=== PATIENT | female | born 1975 | race Caucasian/White ===

== ENCOUNTER 2016-07-18 10:58 | Day surgery (SDC) | payer MEDICAID ==
[~2016-07-18] VITALS: Ht 170.2 cm; Wt 81.6 kg
--- NOTE | ~2016-07-18 | DS ---
PATIENT'S NAME: EMANUEL ASH [facility] AGE: 41 Y [address] ROOM: [place] [id number] [place] [facility] [place]: 07/18/2016 Discharge Summary DISCHARGE DATE: 07/20/2016 FAMILY PHYSICIAN: Alex Rizzo MD ATTENDING PHYSICIAN: George Maza ADMITTING DIAGNOSIS: Stress urinary incontinence. DISCHARGE DIAGNOSES: 1. Stress urinary incontinence. 2. Postoperative bleeding. PROCEDURE PERFORMED: Mid-urethral suspension. HOSPITAL COURSE: On the day admission, the patient underwent a mid-urethral suspension. On the first postoperative day, the patient was comfortable. Her hemoglobin was 11.1 and hematocrit was 34.8, which was now stable. Because of her decreased initial hemoglobin and hematocrit, it was decided to leave her Barker catheter in place and packing. She was allowed to get up in the chair. On the second postoperative day, the patient's hemoglobin remained stable at 10.5 and hematocrit was 33.3. Her Barker catheter was removed in the morning along with the packing. She is able to void and her postvoid residual was 25 mL. The patient was discharged to home with followup scheduled with myself. MD IRVING SANDY/lilly /[id number] d: 08/14/16 0056 t: 08/25/16 1020, DISCHARGE SUMMARY
--- NOTE | ~2016-07-18 | OR ---
PATIENT'S NAME: EMANUEL ASH [facility] AGE: 41 Y [address] ROOM: [place] [address] LOCATION: [facility] – [place] ADMIT DATE: 07/18/2016 OR/Procedure Report DISCHARGE DATE: FAMILY PHYSICIAN: Alex Rizzo MD ATTENDING PHYSICIAN: George Maza SURGEON: George Maza MD STEEL HEATER: DATE OF PROCEDURE: 07/18/2016 PREOPERATIVE DIAGNOSIS: Stress urinary incontinence. POSTOPERATIVE DIAGNOSIS: Stress urinary incontinence. PROCEDURES PERFORMED: Midurethral suspension. ANESTHESIA: General. COMPLICATIONS: None. INDICATION FOR PROCEDURE: The patient is a 41-year-old female with stress urinary incontinence, requests elective repair. DETAILS OF PROCEDURE: After informed consent obtained, the patient was taken to the operating room. A general anesthetic was applied. She was placed in the dorsal lithotomy position. The groin area and lower abdomen were prepped and draped in normal sterile fashion. Two small skin incisions were made over the pubic bone. A Barker catheter was then placed and the bladder emptied. Vasopressin was then injected into the anterior vaginal wall. A T-incision was then made in the anterior vaginal wall using scalpel blade and Metzenbaum scissors. I then carefully dissected space into the endopelvic fascia using blunt and sharp dissection bilaterally. Next, TVT needles were passed through the abdominal incision out the anterior vaginal wall. This was first done on the right side. On the patient's left, it had little more difficulty and noted that the urine was slightly blood tinged. I removed the needle and cystoscopy was performed. This revealed the right-sided needle was in good position and a small puncture wound was noted in the bladder. I then repositioned the needle and performed cystoscopy, this showed the needle not within the bladder and well away from the bladder wall. Next, a tape was attached to the end of each needle and pulled through. Heavy curved scissors were used as a spacing device. The sheath was cut and pulled through locking the tape in position. Excess was excised at the abdominal wall. The patient was noted to have some bleeding on her left side and FloSeal was injected, which controlled the bleeding very well. The incision was then closed with a running interlocking 2-0 Vicryl suture. The vagina was then packed with gauze and vaginal tape. The abdominal incision was Steri-Stripped. The patient PATIENT'S NAME: EMANUEL ASH [facility] AGE: 41 Y [address] ROOM: [place] [address] LOCATION: [facility] – [place] ADMIT DATE: 07/18/2016 OR/Procedure Report DISCHARGE DATE: FAMILY PHYSICIAN: Alex Rizzo MD ATTENDING PHYSICIAN: George Maza tolerated the procedure well and transferred to recovery room in good condition. MD IRVING SANDY/modl /[id number] CC: Alex Rizzo MD d: 07/18/16 2051 t: 07/29/16 1454, OPERATIVE SUMMARY
[~2016-07-18 10:58] MED LIST: ADVIL200 MG PO; CRANBERRY400 MG PO; FLORASTOR250 MG PO; HYDROCODON-ACE1 EAC4 PO; LEXAPRO10 MG PO; PERCOCET 5-3251 EACH PO; PRENATAL 1+1)(P1 TAB PO; PROBIOTIC1 EAC1 PO; SINGULAIR10 MG PO; SUDAFED 12 HOU120 MG PO; TYLENOL EXTRA500 MG PO; VITAMIN D2000 UNI1 PO; XANAX0.5 MG PO; ZOFRAN4 MG PO
[2016-07-18 12:00] LABS: BASOPHIL % 0.7 %; EOSINOPHIL # 0.1 K/uL (0.0-0.5); EOSINOPHIL % 1.4 %; HEMATOCRIT 39.7 % (33.0-46.0); HEMOGLOBIN 13.1 g/dL (10.0-15.0); IMMATURE GRANULOCYTE % 0.2 %; LYMPHOCYTE # 1.6 K/uL (0.8-4.0); LYMPHOCYTE % 27.6 %; MCH 31.3 pg (27.0-34.0); MCV 94.7 fl (83.0-98.0); MONOCYTE # 0.4 K/uL (0.0-1.0); MONOCYTE % 7.7 %; MPV 10.9 fl (9.4-12.4); NEUTROPHIL # (ANC) 3.5 K/uL (1.8-7.8); NEUTROPHIL % 62.4 %; NRBC % 0 /100WBC (0-0.00); PLATELET COUNT 158 K/uL (150-450); RBC 4.19 M/uL (3.50-5.50); RDW-CV 12.8 % (11.9-14.6); WBC 5.7 K/uL (4.0-11.0)
[2016-07-18 12:15] LABS: ALBUMIN 3.5 gm/dL (3.5-5.0); ALK PHOS 53 IU/L (33-138); ALT 40 IU/L (12-78); AST 25 IU/L (10-40); BLOOD UREA NITROGEN 10 mg/dL (6-24); CALCIUM 8.7 mg/dL (8.5-10.5); CHLORIDE 107 mMol/L (96-110); CO2 30 mMol/L (22-32); CREATININE 0.7 mg/dL (0.5-1.1); ESTIMATED GFR (MDRD EQUATION) > 60; SODIUM 141 mMol/L (135-145); TOTAL BILIRUBIN 0.3 mg/dL (0.0-1.5)
[2016-07-19 04:59] LABS: BASOPHIL % 0.2 %; EOSINOPHIL % 0.1 %; HEMATOCRIT 34.8 % (33.0-46.0); HEMOGLOBIN 11.2 g/dL (10.0-15.0); IMMATURE GRANULOCYTE % 0.3 %; LYMPHOCYTE # 1.3 K/uL (0.8-4.0); MCH 31.2 pg (27.0-34.0); MCHC 32.2 gm/dL (32.0-36.5); MCV 96.9 fl (83.0-98.0); MONOCYTE # 0.7 K/uL (0.0-1.0); MONOCYTE % 6.4 %; MPV 11.6 fl (9.4-12.4); NEUTROPHIL # (ANC) 8.5 K/uL (1.8-7.8); NRBC % 0 /100WBC (0-0.00); PLATELET COUNT 157 K/uL (150-450); RBC 3.59 M/uL (3.50-5.50); RDW-CV 12.5 % (11.9-14.6); WBC 10.4 K/uL (4.0-11.0)
[2016-07-19 11:11] LABS: BASOPHIL % 0.2 %; EOSINOPHIL % 0.4 %; HEMATOCRIT 34.8 % (33.0-46.0); HEMOGLOBIN 11.1 g/dL (10.0-15.0); IMMATURE GRANULOCYTE % 0.4 %; LYMPHOCYTE # 1.8 K/uL (0.8-4.0); LYMPHOCYTE % 21.2 %; MCH 31.3 pg (27.0-34.0); MCHC 31.9 gm/dL (32.0-36.5); MONOCYTE # 0.6 K/uL (0.0-1.0); MONOCYTE % 6.6 %; MPV 11.1 fl (9.4-12.4); NEUTROPHIL # (ANC) 6.1 K/uL (1.8-7.8); NEUTROPHIL % 71.2 %; NRBC % 0 /100WBC (0-0.00); PLATELET COUNT 136 K/uL (150-450); RBC 3.55 M/uL (3.50-5.50); RDW-CV 12.7 % (11.9-14.6); WBC 8.5 K/uL (4.0-11.0)
[2016-07-20 05:06] LABS: WBC 6.4 K/uL (4.0-11.0)
[2016-07-20 05:07] LABS: BASOPHIL % 0.6 %; EOSINOPHIL # 0.1 K/uL (0.0-0.5); EOSINOPHIL % 1.1 %; HEMATOCRIT 33.3 % (33.0-46.0); HEMOGLOBIN 10.5 g/dL (10.0-15.0); IMMATURE GRANULOCYTE % 0.3 %; LYMPHOCYTE # 2.6 K/uL (0.8-4.0); LYMPHOCYTE % 41.1 %; MCH 31.1 pg (27.0-34.0); MCHC 31.5 gm/dL (32.0-36.5); MCV 98.5 fl (83.0-98.0); MONOCYTE # 0.4 K/uL (0.0-1.0); MONOCYTE % 6.8 %; MPV 11.2 fl (9.4-12.4); NEUTROPHIL # (ANC) 3.2 K/uL (1.8-7.8); NEUTROPHIL % 50.1 %; NRBC % 0 /100WBC (0-0.00); PLATELET COUNT 127 K/uL (150-450); RBC 3.38 M/uL (3.50-5.50); RDW-CV 13.2 % (11.9-14.6)
[2016-07-20] MEDS ORDERED: FEOSOL325 MG PO (13:11)
[2016-07-20] MEDS ORDERED: NORCO 5-325 TA1 EACH PO (13:12)
[2016-07-20] MEDS ORDERED: LEVAQUIN500 MG PO (13:13)
== END 2016-07-20 15:14 | disposition disaster alternative care site (69) ==
LOC: GMSU 10:58 → GSDC 10:58 → GMSU 15:46 → GSDC 07-20 15:14
PROVIDERS: Urology
PROC: 0TSD0ZZ Reposition Urethra, Open Approach (ICD-10-PCS; principal; 2016-07-18)
DX: N39.3 Stress incontinence (female) (male) (principal); E55.9 Vitamin D deficiency, unspecified; F17.210 Nicotine dependence, cigarettes, uncomplicated; J45.909 Unspecified asthma, uncomplicated; D64.9 Anemia, unspecified; Z98.51 Tubal ligation status; Z13.1 Encounter for screening for diabetes mellitus; Z98.890 Other specified postprocedural states
CPT/HCPCS: C2631; J0295; J0690; J1100; J2001; J2250; J2270; J2405; J3010; J7030; J7040